=== PATIENT | male | born 1995 | race Two or more races ===

== ENCOUNTER 2025-05-30 23:10 | Emergency (ER) | payer OTHER ==
[~2025-05-30] VITALS: Ht 175.3 cm; Wt 90.3 kg
[2025-05-31] MEDS ORDERED: KETOROLAC TROMETHAMINE 60 MG VIAL IM STA (00:42)
[2025-05-31] MEDS ORDERED: KETOROLAC TROMETHAMINE 60 MG VIAL IM ONE (00:56)
[2025-05-31] MEDS ORDERED: KETO10TA2 PO ×2 (02:07)
== END 2025-05-31 02:19 ==
LOC: ER 23:10
DX: M79.602 Pain in left arm (principal); M79.601 Pain in right arm